=== PATIENT | male | born 1950 | race Caucasian/White ===

== ENCOUNTER 2018-11-11 21:46 | Emergency (ER) | payer OTHER, MEDICAID ==
[~2018-11-11] VITALS: Ht 180.3 cm; Wt 72.6 kg
[2018-11-11 23:12] LABS: Basophils # (auto) 0 uL; Basophils % (auto) 0.3 % (0.0-2.0); Eosinophils # (auto) 0.1 uL; Eosinophils % (auto) 0.8 % (0.0-7.0); Hematocrit 42.9 % (41.0-53.0); Hemoglobin 14.7 g/dL (13.5-17.5); Lymphocytes # (auto) 1.7 uL; Lymphocytes % (auto) 14.6 % (10.0-50.0); Mean Corpuscular Hgb Conc. 34.2 g/dL (32.0-36.0); Mean Corpuscular Volume 90.6 fL (80.0-100.0); Monocytes # (auto) 0.8 uL; Neutrophils # (auto) 8.8 uL; Neutrophils % (auto) 77.3 % (37.0-80.0); Nucleated Red Blood Cells % 0.1 %; Platelet Count (auto) 308 10^3/uL (140-450); Red Blood Cells 4.74 10^6/uL (4.5-5.90); Red Cell Distribution Width 12.9 % (11.8-14.3); White Blood Cell 11.4 10^3/uL (4.4-10.8)
[2018-11-11 23:26] VITALS: BP 115/77
[2018-11-11 23:30] LABS: INR 1.09 (0.9-1.15); Partial Thromboplastin Time 29.9 sec (23.64-32.05)
[2018-11-11 23:33] LABS: Alanine Aminotransferase 62 U/L (16-61); Albumin 3.2 g/dL (3.4-5.0); Amylase 32 U/L (25-115); Anion Gap 11 (5-15); Aspartate Aminotransferase 40 U/L (15-37); BUN/Creatinine Ratio 9.5; Blood Urea Nitrogen 8 mg/dL (7-18); Carbon Dioxide 22 mmol/L (21-32); Chloride 94 mmol/L (98-107); GFR African American 117 mL/min; GFR Non-African American 96 mL/min; Glucose 124 mg/dL (74-106); Lipase 161 U/L (73-393); Magnesium 1.7 mg/dL (1.6-2.6); Potassium 3.6 mmol/L (3.5-5.1); Sodium 127 mmol/L (136-145)
[2018-11-11 23:49] LABS: Alkaline Phosphatase 70 U/L (45-117); Bilirubin, Total 0.9 mg/dL (0.2-1.0); Total Protein 6.7 g/dL (6.4-8.2)
[2018-11-12] MEDS ORDERED: ONDANSETRON HCL 4 MG/2 ML VIAL IV ONE
[2018-11-12] MEDS ORDERED: SODIUM CHLORIDE 0.9% 1,000 ML IV ONE
[2018-11-12 00:43] LABS: Urine Bacteria FEW /hpf (None Seen); Urine Blood Negative /uL (Negative); Urine Mucus FEW (None Seen); Urine Specific Gravity 1.013 (1.001-1.035); Urine WBC 3 /hpf (0 - 3)
[2018-11-12] MEDS ORDERED: MAGNESIUM CITRATE SOLUTION 300 ML BTL ONE (01:47)
== END 2018-11-12 01:55 | disposition home or self-care (01) ==
LOC: ER 22:00
DX: K59.01 Slow transit constipation (principal)
CPT/HCPCS: 36415; 71045; 74176; 80053; 80320; 81001; 82150; 83690; 83735; 84484; 85025; 85610; 85730; 93005; 96361; 96374; 99284; J2405; J7030

== ENCOUNTER 2024-08-10 11:00 | Emergency (ER) | payer MEDICAID, MEDICARE, OTHER ==
[~2024-08-10] VITALS: Ht 180.3 cm; Wt 60.4 kg
[2024-08-10 11:18] VITALS: BP 115/66; TEMP 97.6
[2024-08-10 12:04] VITALS: PULSE 102; RESP 16; O2SAT 100
--- NOTE | 2024-08-10 12:09 | ED.PDOC ---
HPI (NEURO) HPI Comments 73 y.o male presents to the ED for a complaint of a pressure-like headache, left hand numbness, dizziness, vision changes and confusion x 1 month. Patient reports feeling a pressure headache that is non radiating, constant and has no alleviating factors. Patient does mention vision has changed, states "slowly losing sight". Patient had an appointment [facility] the [facility] one week ago but had it rescheduled. No chest pain, fever, chills, focal weaknesses, slurred speech, facial drooping noted. Patient is seen ambulatory with steady gait. Patient denies any medical history or allergies, does states using tobacco about half a pack a day and occasional alcohol use. Chief Complaint: Upper Extremity Time Seen by MD: 11:39 Primary Care Provider: Akil Champagne Notes: Nurses Notes, Medications, Allergies Information Source: Patient Mode of Arrival: Ambulatory Severity: Moderate Timing: Months (1) Duration: Since onset Headache Quality: Other (pressure ) Headache Location: Generalized Onset: At rest Circumstances: Spontaneous Symptoms: Vision loss History of: None Modifying factors: Nothing Associated Signs and Symptoms: Headache Past Medical History PAST MEDICAL HISTORY: Denies Surgical History (Other): vasectomy Family History Family History: Unknown Social History Smoker: Cigarettes, Less Than 1 Pack/Day Alcohol: Occasionally Drugs: Denies Drug Use Lives In: Home Constitutional: denies: chills, diaphoresis, fatigue, fever, malaise, sweats, weakness, others EENTM: reports: blurred vision; denies: double vision, ear bleeding, ear discharge, ear drainage, ear pain, ear ringing, eye pain, eye redness, hearing loss, mouth pain, mouth swelling, nasal discharge, nose bleeding, nose congestion, nose pain, photophobia, tearing, throat pain, throat swelling, voice changes, others Respiratory: denies: cough, hemoptysis, orthopnea, SOB at rest, shortness of breath, SOB with excertion, stridor, wheezing, others Cardiovascular: denies: chest pain, dizzy spells, diaphoresis, Dyspnea on exertion, edema, irregular heart beat, left arm pain, lightheadedness, palpitations, PND, syncope, others Gastrointestinal: denies: abdomen distended, abdominal pain, blood streaked bowels, constipated, diarrhea, dysphagia, difficulty swallowing, hematemesis, melena, nausea, poor appetite, poor fluid intake, rectal bleeding, rectal pain, vomiting, others Genitourinary: denies: burning, dysuria, flank pain, frequency, hematuria, incontinence, penile discharge, penile sore, pain, testicle pain, testicle swelling, urgency, others Neurological: reports: headache, numbness (left hand ), others (confusion ); denies: dizziness, fainting, left sided numbness, left sided weakness, paresthesia, pre-existing deficit, right sided numbness, right sided weakness, seizure, speech problems, tingling, tremors, weakness Musculoskeletal: denies: back pain, gout, joint pain, joint swelling, muscle pain, muscle stiffness, neck pain, others Integumetry: denies: bruises, change in color, change in hair/nails, dryness, laceration, lesions, lumps, rash, wounds, others Allergic/Immunocompromised: denies: Difficulty Healing, Frequent Infections, Hives, Itching, others Hematologic/Lymphatic: denies: anemia, blood clots, easy bleeding, easy bruising, swollen glands, others Endocrine: denies: excessive hunger, excessive sweating, excessive thirst, excessive urination, flushing, intolerance to cold, intolerance to heat, unexplained weight gain, unexplained weight loss, others Psychiatric: denies: anxiety, bipolar disorder, depression, hopeless, panic disorder, schizophrenia, sleepless, suicidal, others All Other Systems: Reviewed and Negative Physical Exam General Appearance: No Apparent Distress HEENT: PERRL/EOMI, Other (No facial asymmetry. Moist mucous membranes.) Neck: Full Range of Motion, Normal Inspection Respiratory: Lungs Clear, No Accessory Muscle Use, No Respiratory Distress, Normal Breath Sounds Cardiovascular: No Edema, No JVD, Regular Rate/Rhythm Breast Exam: Deferred Gastrointestinal: Non Tender, Soft Genitalia: Deferred Pelvic: Deferred Rectal: Deferred Extremities: Normal inspection, Normal range of motion, Non-tender, No pedal edema Neurologic: Alert (Oriented x4), Normal Affect, Normal Mood, Other (Ambulatory. Light touch sensation intact all extremities. Subjective diminished light touch sensation left hand.) Cerebellar Function: NOT DONE Reflexes: NOT DONE Skin: Dry, Normal Color, Warm Lymphatic: NOT DONE Was a procedure done? Was a procedure done?: No Differential Diagnosis (SZ) Seizure: Encephalopathy CVA: Electrolyte Imbalance General Weakness: CVA, Dehydration, Meniere's disease, TIA, Vertigo: central, Vertigo: peripheral Headache: Cluster, Migraine, Epidural Hemorrhage, Intracerebral Hemorrhage, Subarachnoid Hemorrhage, Subdural Hemorrhage, Mass Lesion, Sinusitis X-Ray, Labs, Meds, VS Vital Signs Date Time Temp Pulse Resp B/P (MAP) Pulse Ox O2 Delivery O2 Flow Rate FiO2 08/10/24 12:04 102 16 100 Room Air* 0 21 08/10/24 11:18 97.6 83 20 115/66 (82) 100 97.6 08/10/24 11:18 97.6 83 20 115/66 (82) 100 97.6 Lab Test 08/10/24 12:49 08/10/24 11:52 08/10/24 11:15 Range/Units Troponin I High Sensitivity 11 11 </=54 ng/L White Blood Count 7.2 4.4-10.8 10^3/uL Red Blood Count 5.31 4.5-5.90 10^6/uL Hemoglobin 16.5 13.5-17.5 g/dL Hematocrit 48.4 41.0-53.0 % Mean Corpuscular Volume 91.1 80.0-100.0 fL Mean Corpuscular Hemoglobin 31.1 28.0-32.0 pg Mean Corpuscular Hemoglobin Concent 34.2 32.0-36.0 g/dL Red Cell Distribution Width 14.1 11.8-14.3 % Platelet Count 277 140-450 10^3/uL Mean Platelet Volume 8.4 6.9-10.8 fL Neutrophils (%) (Auto) 51.7 37.0-80.0 % Lymphocytes (%) (Auto) 29.5 10.0-50.0 % Monocytes (%) (Auto) 13.4 H 0.0-12.0 % Eosinophils (%) (Auto) 4.7 0.0-7.0 % Basophils (%) (Auto) 0.7 0.0-2.0 % Neutrophils # (Auto) 3.7 1.6-8.6 10 ^3/uL Lymphocytes # (Auto) 2.1 0.4-5.4 10 ^3/uL Monocytes # (Auto) 1.0 0-1.3 10 ^3/uL Eosinophils # (Auto) 0.3 0-0.8 10 ^3/uL Basophils # (Auto) 0 0-0.2 10 ^3/uL Nucleated Red Blood Cells 0.1 % Sodium Level 142 136-145 mmol/L Potassium Level 4.0 3.5-5.1 mmol/L Chloride Level 110 H 98-107 mmol/L Carbon Dioxide Level 23 20-31 mmol/L Anion Gap 9 5-15 Blood Urea Nitrogen 14 9-23 mg/dL Creatinine 1.14 0.700-1.30 mg/dL Glomerular Filtration Rate Calc 67 >90 mL/min BUN/Creatinine Ratio 12.3 10.0-20.0 Serum Glucose 89 74-106 mg/dL Calcium Level 10.1 8.7-10.4 mg/dL POC Glucose 93 70-106 mg/dl CT HEAD WITHOUT CONTRAST Indication: headache, LUE numb EXAM DATE: 08/10/2024 11:56 AM COMPARISON: None TECHNIQUE: CT of the head without intravenous contrast. RADIATION DOSE: CTDIvol: 53.0 mGy, DLP: 863.9 mGy*cm FINDINGS: There is no intracranial hemorrhage. There is no extra-axial fluid, mass, mass effect or midline shift. The ventricles are midline and normal in size. Basilar cisterns are patent. There are [id number] periventricular and subcortical white matter chronic microvascular ischemic changes. Old bilateral basal ganglia lacunar infarcts. The paranasal sinuses and mastoids are well-pneumatized. Imaged portion of the orbits are unremarkable. IMPRESSION: 1. No intracranial hemorrhage or mass effect. Kyzy-eq-svhztiqk chronic omkar rovascular 2. Ischemic changes. Recommend MRI brain to evaluate for superimposed acute infarction. 3. Old bilateral basal ganglia lacunar infarcts X-Ray, Labs, Meds, VS Comment 73-year-old male who denies any significant past medical history presenting complaining of headache, dizziness, confusion and left hand numbness progressively worsening over the past month Vitals remarkable for temperature 97.6 Exam remarkable for subjective diminished light touch sensation on the left hand Rhythm strip independently interpreted by me: Sinus rhythm, rate 83, no ectopy. CT head IMPRESSION: 1. No intracranial hemorrhage or mass effect. Ihwm-zl-hcrvnkec chronic microvascular 2. Ischemic changes. Recommend MRI brain to evaluate for superimposed acute infarction. 3. Old bilateral basal ganglia lacunar infarcts CBC, basic metabolic panel, BNP and 2 serial troponins unremarkable Patient treated with the following in the ED: Aspirin 325 mg p.o. On re-evaluation, patient has had no new neurologic changes. Vitals were stable. Plan is to admit the patient for brain MRI and neuro evaluation. Time of 1ST Reevaluation: 12:30 Reevaluation 1ST: Unchanged Patient Education/Counseling: Diagnosis, Treatment, Prognosis Family Education/Counseling: No Family Present Departure 1 Departure Time of Disposition: 14:00 Impression: Primary Impression: Headache Qualified Codes: R51.9 - Headache, unspecified Additional Impression: Numbness of left hand Disposition: ADMITTED INPATIENT Admit to: Tele Condition: Guarded Critical Care Note Critical Care Time?: No Stability Stability form required: No I personally scribed for PETROS MEJIA MD ([facility]) on 08/10/24 at 12:09. Electronically submitted by Hazel Hardwick ([facility]). I personally scribed for PETROS MEJIA MD ([facility]) on 08/10/24 at 12:39. Electronically submitted by Hazel Hardwick ([facility]). PETROS MEJIA MD Aug 10, 2024 12:09
[2024-08-10 12:13] LABS: Basophils # (auto) 0 10 ^3/uL (0-0.2); Basophils % (auto) 0.7 % (0.0-2.0); Eosinophils # (auto) 0.3 10 ^3/uL (0-0.8); Eosinophils % (auto) 4.7 % (0.0-7.0); Hematocrit 48.4 % (41.0-53.0); Hemoglobin 16.5 g/dL (13.5-17.5); Lymphocytes # (auto) 2.1 10 ^3/uL (0.4-5.4); Lymphocytes % (auto) 29.5 % (10.0-50.0); Mean Corpuscular Hemoglobin 31.1 pg (28.0-32.0); Mean Corpuscular Hgb Conc. 34.2 g/dL (32.0-36.0); Mean Corpuscular Volume 91.1 fL (80.0-100.0); Monocytes % (auto) 13.4 % (0.0-12.0); Neutrophils # (auto) 3.7 10 ^3/uL (1.6-8.6); Neutrophils % (auto) 51.7 % (37.0-80.0); Nucleated Red Blood Cells % 0.1 %; Platelet Count (auto) 277 10^3/uL (140-450); Red Blood Cells 5.31 10^6/uL (4.5-5.90); Red Cell Distribution Width 14.1 % (11.8-14.3); White Blood Cell 7.2 10^3/uL (4.4-10.8)
[2024-08-10 12:18] LABS: Sodium 142 mmol/L (136-145)
[2024-08-10 12:19] LABS: Anion Gap 9 (5-15); Carbon Dioxide 23 mmol/L (20-31)
[2024-08-10 12:20] LABS: Calcium 10.1 mg/dL (8.7-10.4)
--- NOTE | 2024-08-10 12:23 | DVH ---
CT HEAD WITHOUT CONTRAST Indication: headache, LUE numb EXAM DATE: 08/10/2024 11:56 AM COMPARISON: None TECHNIQUE: CT of the head without intravenous contrast. RADIATION DOSE: CTDIvol: 53.0 mGy, DLP: 863.9 mGy*cm FINDINGS: There is no intracranial hemorrhage. There is no extra-axial fluid, mass, mass effect or midline shif t. The ventricles are midline and normal in size. Basilar cisterns are patent. There are [id number] rate periventricular and subcortical white matter chronic microvascular ischemic changes. Old bilater al basal ganglia lacunar infarcts. The paranasal sinuses and mastoids are well-pneumatized. Imaged portion of the orbits are unremarkabl e. IMPRESSION: 1. No intracranial hemorrhage or mass effect. Nyjx-ed-[id number] chronic microvascular 2. Ischemic changes. Recommend MRI brain to evaluate for superimposed acute infarction. 3. Old bilateral basal ganglia lacunar infarcts
[2024-08-10 12:24] LABS: BUN/Creatinine Ratio 12.3 (10.0-20.0); Blood Urea Nitrogen 14 mg/dL (9-23); Glucose 89 mg/dL (74-106)
[2024-08-10 12:28] LABS: Chloride 110 mmol/L (98-107)
[2024-08-10] MEDS: ASPirin 325 MG TAB PO ONE (12:45)
[2024-08-10] MEDS ORDERED: ACETAMINOPHEN 500 MG TAB or CAP PO ONE (15:45)
== END 2024-08-10 15:25 | disposition left against medical advice (07) ==
LOC: ER 11:00
DX: R51.9 Headache, unspecified (principal); R20.0 Anesthesia of skin; F17.210 Nicotine dependence, cigarettes, uncomplicated
CPT/HCPCS: 36415; 70450; 80048; 82947; 82962; 84484; 85025

== ENCOUNTER 2024-08-12 20:29 | Emergency (ER) | payer OTHER, MEDICARE ==
[~2024-08-12] VITALS: Ht 180.3 cm; Wt 60.0 kg
[2024-08-12 20:50] VITALS: BP 139/71; PULSE 69; RESP 13; TEMP 97.5; O2SAT 100
[2024-08-12] MEDS ORDERED: SODIUM CHLORIDE 0.9% 1,000 ML IV ONE (21:15)
[2024-08-12] MEDS ORDERED: ACETAMINOPHEN 325 MG TAB PO ONE (21:15)
[2024-08-12] MEDS ORDERED: NAPROXEN 500 MG TAB PO ONE (21:15)
--- NOTE | 2024-08-12 22:07 | ED.PDOC ---
History of Present Illness HPI Comments 73-year-old male presents with 2 month history of intermittent brain fog, dizziness whenever standing, shortness of breath, bilateral hand numbness, and right arm swelling. Patient is a poor historian. Endorses on returning to the ED after being evaluated 2 days ago for same complaints and leaving prior to admission for further workup, due to symptoms still persisting. Does not have a current primary care provider nor endorses on having any significant medical history aside from tobacco and marijuana use. Patient denies having any headache, nausea, vomiting, fever, chills, chest pain, or further associated symptoms. Chief Complaint: Dizziness Time Seen by MD: 21:05 Primary Care Provider: Akil Reviewed Notes: Nurses Notes, Medications, Allergies Allergies: Coded Allergies: NO KNOWN ALLERGIES (Unverified , 06/10/14) Information Source: Patient Mode of Arrival: Ambulatory Severity: Moderate Timing: Months Duration: Intermittent Prehospital treatment: None Review of Systems: REVIEW OF SYSTEMS: No fever, no chills, or fatigue HEENT: No sore throat, no earache, no congestion, no neck pain. Cardiac: No chest pain. No palpitations. Lungs: Shortness of breath, no cough. GI: No nausea, no vomiting, no diarrhea, no constipation, no abdominal pain : No dysuria, frequency, or urgency. No hematuria. Musculoskeletal: Right arm swelling, no joint pain , no joint swelling, no extremity edema. Skin: No rash, no itching. Neuro: Brain fog, dizziness, bilateral hand numbness, no headache Vital Signs Vital Signs Date Time Temp Pulse Resp B/P (MAP) Pulse Ox O2 Delivery O2 Flow Rate FiO2 08/12/24 20:50 97.5 69 13 139/71 (93) 100 97.5 Physical Exam General: Awake, alert and oriented. No acute distress. Skin: Skin in warm, dry and intact. Appropriate color for ethnicity. HEENT: The head is normocephalic and atraumatic. Conjunctivae are clear without exudates or hemorrhage. Sclera is non-icteric. EOM are intact. No signs of nystagmus. Eyelids are normal in appearance without swelling or lesions. Oral mucosa is pink and moist Neck: The neck is supple with normal range of motion. No JVD. Cardiac: Heart rate and rhythm are normal. No murmurs, gallops, or rubs are auscultated. Respiratory: No signs of respiratory distress. Lung sounds are clear in all lobes bilaterally without rales, rhonchi, or wheezes. Abdominal: Abdomen is soft, non-tender without distention, guarding or rigidity. Bowel sounds are present and normoactive in all four quadrants. Extremities: Upper and lower extremities are atraumatic in appearance without deformity or edema. Neurological: The patient is awake, alert and oriented to person, place, and time with normal speech. Speech is clear. There is no facial asymmetry. Normal sensation and strength. He is able to go from a seated to a standing position without difficulty but endorses on worsening dizziness whenever standing. Psychiatric: Appropriate mood and affect. Good judgement and insight. Past Medical History Past Medical History (Other): underweight Surgical History: Denies all surgeries Family History Family History: Unknown Social History Smoker: Cigarettes, Less Than 1 Pack/Day Alcohol: Occasionally Drugs: Marijuana Lives In: Home Was a procedure done? Was a procedure done?: No Differential Dx Considerations may include: Differential diagnoses considered includebut arenot limited to acute Bronchitis, Asthma, COPD, Pneumothorax, PE, CHF, Pulmonary HTN, Anemia, CO Poisoning, Methemoglobinemia, Hyperventilation, Metabolic Acidosis, Pulmonary Edema, Pneumonia, ACS, Pericardial Tamponade, Anxiety, other X-Ray, Labs, Meds, VS Vital Signs Date Time Temp Pulse Resp B/P (MAP) Pulse Ox O2 Delivery O2 Flow Rate FiO2 08/12/24 20:50 97.5 69 13 139/71 (93) 100 97.5 Time of 1ST Reevaluation: 21:35 Reevaluation 1ST: Unchanged Patient Education/Counseling: Other (need for admission) Family Education/Counseling: No Family Present Departure 1 Departure Time of Disposition: 00:23 Impression: Primary Impression: Numbness of left hand Additional Impressions: Headache Eloped from emergency department Disposition: 07 LEFT AWOL/ELOPED Condition: Other Comments Patient was seen evaluated in the triage area. Discussed recommendation for admission for further workup of his symptoms including MRI as previously recommended. Patient initially agreed to admission however he refused labs and then eloped from the emergency department. He was unable to be located in the ER lobby, ER parking lot Critical Care Note Critical Care Time?: No Stability Stability form required: No Heart Score Heart Score: Heart Score Response (Comments) Value History N/A 0 EKG N/A 0 Age N/A 0 Risk Factors N/A 0 Troponin N/A 0 Total 0 I personally scribed for DELVIS GARRIDO MD ([email or web address]) on 08/12/24 at 22:07. Electronically submitted by Edgard Fountain ([email or web address]). DELVIS GARRIDO MD Aug 12, 2024 22:07
[2024-08-12] MEDS ORDERED: DOCUSATE SOD 100 MG CAP PO PRN (23:00)
[2024-08-12] MEDS ORDERED: ACETAMINOPHEN 325 MG TAB PO PRN (23:00)
[2024-08-12] MEDS ORDERED: SODIUM CHLORIDE 0.9% 1,000 ML IV SCH (23:00)
[2024-08-12] MEDS ORDERED: NITROGLYCERIN 0.4 MG SL TAB SL PRN (23:00)
[2024-08-12] MEDS ORDERED: MORPHINE SULFATE INJ 2 MG/ml SYRG IV PRN ×2 (23:00)
== END 2024-08-12 22:39 | disposition left against medical advice (07) ==
LOC: ER 20:34 → UNDODISIN 22:49 → OVERFLOW 22:49 → UNDOADMIN 22:49
DX: R20.0 Anesthesia of skin (principal); R51.9 Headache, unspecified; F17.210 Nicotine dependence, cigarettes, uncomplicated; F10.90 Alcohol use, unspecified, uncomplicated; F12.90 Cannabis use, unspecified, uncomplicated; Z53.21 Procedure and treatment not carried out due to patient leaving prior to being seen by health care provider; Y90.9 Presence of alcohol in blood, level not specified
CPT/HCPCS: G0378